=== PATIENT | female | born 1965 | race Two or more races ===

== ENCOUNTER 2022-12-07 10:01 | Outpatient (REF) | payer OTHER, SELFPAY ==
[2022-12-11 09:14] LABS: Immunoglobulin A 264 mg/dL (47-310)
[2022-12-12 14:28] LABS: Endomysial IgA Antibody Negative (Negative)
[2022-12-16 09:29] LABS: Gliadin Deamidated IgA Ab 2.2 U/mL; Gliadin Deamidated IgG Ab <1.0 U/mL; Transglutaminase Ab IgG <1.0 U/mL; Transglutaminase IgA <1.0 U/mL
== END 2022-12-07 10:02 | disposition home or self-care (01) ==
LOC: HO.10HDL 10:01
PROVIDERS: Visit Provider Internal Medicine
DX: R19.4 Change in bowel habit (principal)
CPT/HCPCS: 36415; 82784; 86231; 86258; 86364

== ENCOUNTER 2023-05-25 09:26 | Day surgery (SDC) | payer OTHER, SELFPAY ==
--- NOTE | 2023-02-22 10:12 | P.CONAN_ITS ---
HPI - Anesthesia Eval Consult details Narrative: 58yo F for Upper Endoscopy and Colonoscopy [facility] Past Medical History Medical History (Updated 02/22/23 @ 08:17 by Yakelin Meredith) Environmental allergies HLD (hyperlipidemia) HTN (hypertension) NIDDY (non-insulin dependent diabetes mellitus in young) Surgical History Surgical History (Updated 02/22/23 @ 07:44 by Yakelin Meredith) H/O tubal ligation History of bilateral breast reduction surgery H/O cardiac radiofrequency ablation Meds Allergies Allergy/AdvReac Type Severity Reaction Status Date / Time No Known Allergies Allergy Verified 02/22/23 08:17 Home Medications Medication Instructions Recorded Confirmed Last Taken Type atorvastatin 40 mg tablet 40 mg PO DAILY 02/22/23 02/22/23 Unknown History dulaglutide 1.5 mg/0.5 mL mg subcut 02/22/23 Unknown History subcutaneous pen injector (Trulicity) losartan 25 mg tablet 25 mg PO DAILY 02/22/23 02/22/23 Unknown History metformin 500 mg tablet 500 mg PO BID 02/22/23 02/22/23 Unknown History Exam Exam Date and Time: February 22, 2023 1012 Assessment and Plan Assessment Anesthesia Assessment: Chart Reviewed
[2023-05-22 15:35] VITALS: BMI 27.1
--- NOTE | 2023-05-24 09:53 | P.CONAN_ITS ---
Documented by User: Gayatri Abdalla NP 05/24/23 09:53 HPI - Anesthesia Eval Consult details Narrative: 58yo F for Upper Endoscopy and Colonoscopy Anesthesia Pre-Procedure Meds Is the patient on any of the following meds?: Dulaglutide (Trulicity) [facility] Past Medical History Medical History (Updated 05/25/23 @ 11:47 by Dawn Childers MD) GERD (gastroesophageal reflux disease) Diabetes Environmental allergies HLD (hyperlipidemia) HTN (hypertension) Surgical History Surgical History H/O colonoscopy H/O tubal ligation History of bilateral breast reduction surgery H/O cardiac radiofrequency ablation Social History Social History Patient Tobacco Use Status: Never used Tobacco Use of substances other than those prescribed or required for medical reasons: No Are you DNR?: No Advance Directives: No Advance Directives Information Provided: Yes Meds Allergies Allergy/AdvReac Type Severity Reaction Status Date / Time No Known Allergies Allergy Unverified 04/11/23 14:00 Home Medications Medication Instructions Recorded Confirmed Last Taken Type atorvastatin 40 mg tablet 40 mg PO DAILY 02/22/23 05/25/23 05/24/23 History dulaglutide 1.5 mg/0.5 mL 1.5 mg subcut QWEEK 02/22/23 05/24/23 05/13/23 History subcutaneous pen injector (Trulicity) losartan 25 mg tablet 25 mg PO DAILY 02/22/23 05/25/23 05/24/23 History metformin 500 mg tablet 500 mg PO BID 02/22/23 05/25/23 05/24/23 History Exam Height,Weight and Vital Signs: Height 5 ft 4 in Weight 71.668 kg Documented by User: Dawn Childers MD 05/25/23 11:48 HPI - Anesthesia Eval Anesthesia Pre-Procedure Meds If Yes to any meds - educate patient: Pt education - increased risk of aspiration PMFSH Past Medical History Medical History (Updated 05/25/23 @ 11:47 by Dawn Childers MD) GERD (gastroesophageal reflux disease) Diabetes Environmental allergies HLD (hyperlipidemia) HTN (hypertension) Family History Family history of problems with anesthesia: No Surgical History Surgical History H/O colonoscopy H/O tubal ligation History of bilateral breast reduction surgery H/O cardiac radiofrequency ablation History of Problems with Anesthesia: No Social History Social History Patient Tobacco Use Status: Never used Tobacco Use of substances other than those prescribed or required for medical reasons: No Are you DNR?: No Advance Directives: No Advance Directives Information Provided: Yes Meds Allergies Allergy/AdvReac Type Severity Reaction Status Date / Time No Known Allergies Allergy Unverified 04/11/23 14:00 Home Medications Medication Instructions Recorded Confirmed Last Taken Type atorvastatin 40 mg tablet 40 mg PO DAILY 02/22/23 05/25/23 05/24/23 History dulaglutide 1.5 mg/0.5 mL 1.5 mg subcut QWEEK 02/22/23 05/24/23 05/13/23 History subcutaneous pen injector (Trulicity) losartan 25 mg tablet 25 mg PO DAILY 02/22/23 05/25/23 05/24/23 History metformin 500 mg tablet 500 mg PO BID 02/22/23 05/25/23 05/24/23 History Exam Height,Weight and Vital Signs: Height 5 ft 4 in Weight 71.668 kg Vital Signs Temp Pulse Resp BP Pulse Ox O2 Del Method 05/25/23 10:07 96.6 F L 83 16 120/76 98 Room Air Pertinent Lab Results Pertinent Lab Results: Lab Results 05/25/23 Range/Units 09:49 POC Glucose 203 H (60-115) mg/dL Airway Mallampati Class: I TM Dist: >3cm Neck ROM: Full Loose/Missing/Broken Teeth: Yes (Missing molars. Denies broken or loose teeth) Heart: RRR Lungs: CTAB Assessment and Plan Assessment Anesthesia Assessment: Anesthesia Plan Discussed and Chart Reviewed Final Anesthetic Review Family History of Problems with Anesthesia: No History of Problems with Anesthesia: No NPO: Yes ASA Class: II Final Preanesthetic Review: No Changes in Pt Med Stat, Meds/Allgs Chart Reviewed, Consent Obtained/Reviewed and Anes Risks/Benef Reviewed Patient Risk: Intermediate Procedure Risk: Low Assessment/Block/Sedation in SS: Assess/Block/Sedation-SS Anesthetic Plan Anesthetic Plan: MAC: Disposition: Standard PACU
[2023-05-25 09:42] VITALS: BMI 26.4
[2023-05-25 10:07] VITALS: BP 120/76; PULSE 83; RESP 16; TEMP 35.9; O2SAT 98
[2023-05-25] MEDS: Lactated Ringers 1,000 ML 100 ML IVCONT (10:07)
[2023-05-25 10:42] LABS: Glucose, Whole Blood 203 mg/dL (60-115)
[2023-05-25 13:11] VITALS: BP 103/62; PULSE 82; RESP 16; TEMP 36.1; O2SAT 99
--- NOTE | 2023-05-25 13:15 | P.BOP_ITS ---
Brief Operative Note Date of Service: 05/25/23 Pre-op diagnosis: GERD, Change in Bowel habits, Screening Post-op diagnosis: other (Hiatal hernia, GERD, R/O Celiac disease, Rectal polyp) Procedure: EGD with biopsies, Colonoscopy to the cecum with hot snare polypectomy x 1 Surgeon: Humberto Holloway MD Anesthesia: MAC Was an Hvac Controls Technician used for this Procedure?: No Estimated blood loss (mL): 2.0 Pathology: other (A. Descending duodenum B. Rectal polyp) Condition: stable Disposition: PACU
[2023-05-25 13:26] VITALS: BP 115/71; PULSE 75; RESP 18; TEMP 36.1; O2SAT 100
--- NOTE | 2023-05-25 13:33 | OP_ITS ---
DATE OF SERVICE: 05/25/2023 SURGEON: Humberto Holloway MD INDICATIONS: The patient presents for evaluation of gastroesophageal reflux, intermittent diarrhea, and colorectal cancer screening. Full consent has been obtained from her for this, including risks of bleeding and perforation. PREOPERATIVE DIAGNOSIS: POSTOPERATIVE DIAGNOSIS: Gastroesophageal reflux, change in bowel habits, colorectal cancer screening, rule out celiac disease, small hiatal hernia, colon polyp, diverticulosis, and internal hemorrhoids. PROCEDURE PERFORMED: Esophagogastroduodenoscopy with biopsies, and colonoscopy to the cecum with hot snare polypectomy. ESTIMATED BLOOD LOSS: COMPLICATIONS: ANESTHESIA: Monitored anesthesia care. ASSISTANTS: SPECIMENS: PREOPERATIVE DIAGNOSES: Gastroesophageal reflux, change in bowel habits, colorectal cancer screening. DESCRIPTION OF PROCEDURE: The patient was placed in the left lateral decubitus position. The Olympus video gastroscope was passed in the posterior oropharynx and upper esophagus under direct vision. The scope was passed slowly to the distal esophagus. The gastroesophageal junction appeared normal at 37 cm. There was no sign of any esophagitis nor Tamayo's esophagus. The scope entered the stomach. There was a small hiatal hernia. The scope was advanced to the pylorus and the duodenum was cannulated to the descending portion. The duodenum including the bulb appeared normal without mass or ulceration. Biopsies were obtained from the 2nd and 3rd portions of duodenum. The scope was withdrawn back in the stomach. The gastric antrum and body appeared normal with good peristalsis. The scope was retroflexed visualizing the proximal stomach carefully, which appeared normal, without any sign of mass or ulceration. The scope was straightened and withdrawn back to the esophagus. The esophageal mucosa appeared normal. The scope was withdrawn from the patient. She was turned around for the colonoscopy. The digital rectal exam revealed no abnormalities. The Olympus video pediatric colonoscope was entered into the rectum advanced easily to the cecum. Once in the cecum, I did identify normal-appearing cecal pouch with appendiceal orifice and a normal-appearing ileocecal valve. The entire cecum and ileocecal valve appeared normal. There was transillumination of light deep in the right lower quadrant. The scope was slowly withdrawn assessing all mucosal surfaces carefully. Preparation was excellent. I did not visualize any sign of colitis nor angiodysplasia. There was a mild amount of sigmoid diverticulosis. In the rectum, scope was retroflexed visualizing internal hemorrhoids, but no other pathology. The scope was straightened. In the proximal portion of the rectum was an approximately 10 mm polyp, which was removed by hot snare polypectomy and recovered by suction. The polypectomy site appeared clean, without any sign of residual polyp nor bleeding. The scope was withdrawn from the patient. She tolerated both procedures well and was returned to the recovery area in stable condition. IMPRESSION: 1. Rectal polyp. 2. Diverticulosis. 3. Internal hemorrhoids. 4. Rule out celiac disease. 5. Hiatal hernia and reflux. PLAN: The results of the pathology will be checked. I would recommend a repeat colonoscopy in 5 years for further screening and surveillance. She was advised not to use any aspirin and NSAIDs for 1 week. She does report that since having cut down on metformin, her bowel movements have improved in regard to the previous diarrhea. If things are stable, she will see me on a p.r.n. basis. This has been discussed with her daughter. MD NIYAH Mendoza/TERRY / [id number] MTDPura
== END 2023-05-25 15:30 | disposition home or self-care (01) ==
PROVIDERS: PCP Physician Assistant Medical; Visit Provider Internal Medicine
PROC: (CPT 45385; principal; 2023-05-25 10:40)
DX: Z12.11 Encounter for screening for malignant neoplasm of colon (principal); Z86.010 Personal history of colon polyps; D12.8 Benign neoplasm of rectum; K57.30 Diverticulosis of large intestine without perforation or abscess without bleeding; K64.8 Other hemorrhoids; R19.7 Diarrhea, unspecified; K21.9 Gastro-esophageal reflux disease without esophagitis; K44.9 Diaphragmatic hernia without obstruction or gangrene; I10 Essential (primary) hypertension; E78.5 Hyperlipidemia, unspecified; E11.9 Type 2 diabetes mellitus without complications; Z79.84 Long term (current) use of oral hypoglycemic drugs; Z79.85 Long-term (current) use of injectable non-insulin antidiabetic drugs; Z79.899 Other long term (current) drug therapy; Z98.890 Other specified postprocedural states
CPT/HCPCS: 45385; 43239; 82947; 88305; J2704

== ENCOUNTER 2024-01-16 05:39 | Emergency (ER) | payer MEDICAID, SELFPAY ==
[2024-01-16 05:55] VITALS: BP 149/76; PULSE 76; RESP 16; TEMP 36.3; O2SAT 99; BMI 26.6
[2024-01-16 06:13] VITALS: BP 142/82; PULSE 72; RESP 18; TEMP 36.4; O2SAT 98
--- NOTE | 2024-01-16 06:38 | ED.GENADULT ---
HPI - General Adult General Chief complaint: Eye Problems Stated complaint: left eye is swollen x 3 days Time Seen by Provider: 01/16/24 06:24 Source: patient Mode of arrival: ambulatory Limitations: no limitations History of Present Illness ED Provider: issac HPI narrative: Patient is a 59-year-old female with history of HTN, DM presenting to the ED with complaint of left eye pain and swelling for the past 3 days. States symptoms began as stye to upper eyelid which she has had in the past, but the swelling is increasing. Denies pain with eye movements. Reports small amount of white drainage. Denies any changes in vision. Does not wear contacts. Has applied warm compresses with little change. States blood gluocose levels have been within normal range. complaint: left eye swelling Onset (ago): day(s) Location: eyes Severity: mild Quality: aching Treatments prior to arrival: heat therapy Related Data Home Medications ?Medication ?Instructions ?Recorded ?Confirmed atorvastatin 40 mg tablet 40 mg PO DAILY 02/22/23 05/25/23 dulaglutide 1.5 mg/0.5 mL 1.5 mg subcut QWEEK 02/22/23 05/24/23 subcutaneous pen injector (Trulicity) losartan 25 mg tablet 25 mg PO DAILY 02/22/23 05/25/23 metformin 500 mg tablet 500 mg PO BID 02/22/23 05/25/23 Previous Rx's ?Medication ?Instructions ?Recorded cefdinir 300 mg capsule 300 mg PO BID #14 caps 01/16/24 erythromycin 5 mg/gram (0.5 %) eye 0.5 inch ophthalmic (eye) BID #3.5 01/16/24 ointment grams Allergies Allergy/AdvReac Type Severity Reaction Status Date / Time lisinopril Allergy Cough Verified 01/16/24 06:03 Review of Systems Review of Systems: As per HPI. Yes all other systems are reviewed and are negative Constitutional: Constitutional: Reports as per HPI [facility] Past Medical History Medical History (Updated 01/16/24 @ 07:23 by Katherine Cummings NP) GERD (gastroesophageal reflux disease) Diabetes Environmental allergies HLD (hyperlipidemia) HTN (hypertension) Surgical History H/O colonoscopy H/O tubal ligation History of bilateral breast reduction surgery H/O cardiac radiofrequency ablation Social History Social History Patient Tobacco Use Status: Never used Tobacco Advance Directives: No Advance Directives Information Provided: Yes Do you have a plan to hurt others: No Plan Physical Exam ED Vital Signs: Vital Signs - 24 hr 01/16/24 05:55 01/16/24 06:13 Temperature 97.3 F 97.6 F Pulse Rate 76 72 Respiratory Rate 16 18 Blood Pressure 149/76 H 142/82 H Pulse Oximetry 99 98 Oxygen Delivery Method Room Air Room Air BMI result Body Mass Index 26.6 Vital signs have been reviewed and appear to be correct. Blood pressure normal. Heart rate normal. Respiratory rate normal. Temperature normal. Oxygen saturation normal. Const General: cooperative, healthy appearing and no acute distress Orientation/consciousness: oriented to person, oriented to place, oriented to time and patient oriented x3 Limitations: no limitations HENMT Head: Yes normocephalic and Yes atraumatic Ears: external ears normal General nose exam: Normal external nose present Face and sinus: Yes face symmetric Mouth: oropharynx normal and moist mucous membranes Throat: Yes uvula midline Eyes Eyelids: Yes eyelid abnormality (left upper eyelid internal hordeolum with associated erythema and swelling ) Conjunctivae: conjunctivae normal Sclerae: sclerae normal Pupils: Equal, round and reactive pupils present EOM: EOMs intact bilaterally (no pain with movement) Neck Neck: Yes normal visual inspection and Yes supple Resp Effort & Inspection: normal respiratory effort and able to speak in complete sentences Auscultation: clear to auscultation bilaterally Cardio Rate: regular rate Rhythm: regular rhythm Heart sounds: S1 normal heart sound present and S2 normal heart sound present Skin General skin exam: elasticity normal and turgor normal Neuro General: oriented to person, oriented to place, oriented to time, patient oriented x3, moves all extremities, no focal motor deficits and CN's II-XI intact bilaterally Cranial nerves: Yes Equal, round and reactive pupils present Cognition (Neuro): normal cognition Extrem General: Yes full ROM, Yes no pedal edema and Yes no calf tenderness Psych Mental Status: mental status grossly normal Affect: normal affect Thought process: Normal thought process present Medical Decision Making Medical Decision Making MDM Narrative: Patient is a 59-year-old female with history of HTN, DM presenting to the ED with complaint of left eye pain and swelling for the past 3 days. On exam patient is awake, A+Ox3, VS WNL, afebrile, normal neurological exam without focal deficits, physical exam findings as above. Given reported symptoms and physical exam findings, initial differential includes hordeolum, early preseptal cellulitis. Do not suspect orbital cellulitis. Will start patient on erythromycin ointment and cefdinir. Advised her to continue with warm compresses. Return precautions discussed at bedside. Patient concerned with cost as she does not have insurance. Given IPG card, advised to call ED if she gets to the pharmacy and the antibiotics are cost prohibitive. Patient verbalized understanding of and agreement with plan. Differential Diagnosis Differential Diagnoses: The differential diagnosis associated with the presentation includes As per [facility] External Record Review External record reviewed: Inpatient record, Office record and Outpatient record Prescription Management I considered prescription management with: Antibiotic Discharge Plan Discharge Clinical Impression: Hordeolum internum left upper eyelid Patient Disposition: Home, Self-Care Instructions: [facility] (ED) Additional Instructions: You were evaluated in the emergency department today for left eye pain and swelling which is due to a hordeolum (stye). You are being prescribed an ointment to apply as well as oral antibiotics. Use these medications as prescribed. You can continue to apply warm compressed to the area. Return to the emergency department if you develop increasing redness, swelling, increased drainage, fever, pain with eye movement, changes in vision or any other new or concerning symptoms. Prescriptions: New erythromycin 5 mg/gram (0.5 %) ointment 0.5 inch ophthalmic (eye) BID Qty: 3.5 0RF Rx Instructions: left eye cefdinir 300 mg capsule 300 mg PO BID Qty: 14 0RF No Action atorvastatin 40 mg tablet 40 mg PO DAILY metformin 500 mg tablet 500 mg PO BID losartan 25 mg tablet 25 mg PO DAILY Trulicity 1.5 mg/0.5 mL pen injector 1.5 mg subcut QWEEK Referrals: Graham Sanchez [Physician] - Print Language: Japanese
[2024-01-16 07:46] VITALS: BP 142/82; PULSE 72; RESP 18; TEMP 36.4; O2SAT 98
== END 2024-01-16 07:46 | disposition home or self-care (01) ==
PROVIDERS: Emergency Provider Emergency Medicine; PCP Physician Assistant Medical
DX: H00.024 Hordeolum internum left upper eyelid (principal); H57.12 Ocular pain, left eye; Z79.899 Other long term (current) drug therapy
CPT/HCPCS: 99283